=== PATIENT | female | born 1960 | race American Indian/Alaskan Native ===

== ENCOUNTER 2019-05-31 13:11 | Outpatient (CLI) | payer OTHER ==
--- NOTE | 2019-05-31 14:44 | Cat Scan Report ---
CT CHEST WITHOUT CONTRAST HISTORY: Chest pain. COMPARISON: None TECHNIQUE: Routine chest CT exam performed without contrast. Lack of intravenous contrast limits perfecto luation of the vascular and solid organs. Note: All CT scans at this location are performed using CT dose reduction employed for ALARA by means of automated exposure control. CONTRAST: None. FINDINGS: CHEST CT: Heart and Pericardium: Normal heart size. Normal thickness pericardium. Vasculature: Normal. Lymphatics: No lymphadenopathy. Lungs: Normally expanded and clear lungs. No pulmonary nodule or mass. No interstitial disease, airsp maxine disease or pleural effusion. No pneumothorax. Trachea and Bronchi: No significant abnormality. Osseous Structures: Moderate midthoracic dextroscoliosis. Moderate multilevel degenerative change wit h osteophytes. Additional Findings: The upper abdomen is unremarkable for several benign hepatic cysts. The largest is in the left lobe and measures 2.5 cm. IMPRESSION: 1. Scoliosis and multilevel degenerative disc disease of the thoracic spine. 2. No mass or lymphadenopathy. 3. No acute or chronic lung abnormality. Signer Name: Alex Marsh MD Signed: 05/31/2019 2:40 PM Workstation Name: [id number]
== END 2019-05-31 13:12 | disposition home or self-care (01) ==
LOC: CT 13:11
PROVIDERS: ATTEND Internal Medicine
DX: Z01.89 Encounter for other specified special examinations (principal); M41.84 Other forms of scoliosis, thoracic region; M51.34 Other intervertebral disc degeneration, thoracic region
CPT/HCPCS: 71250